=== PATIENT | female | born 1990 ===

== ENCOUNTER 2021-06-23 14:35 | Outpatient (CLI) | payer OTHER | END 2021-06-23 17:30 | disposition home or self-care (01) | LOC: PRENATAL 14:35 | PROVIDERS: ATTEND Obstetrics & Gynecology Maternal & Fetal Medicine | DX: O26.849 Uterine size-date discrepancy, unspecified trimester (principal); O30.90 Multiple gestation, unspecified, unspecified trimester; Z3A.11 11 weeks gestation of pregnancy ==

== ENCOUNTER 2021-08-24 12:29 | Outpatient (CLI) | payer OTHER | END 2021-08-24 14:00 | disposition home or self-care (01) | LOC: PRENATAL 12:29 | PROVIDERS: ATTEND Obstetrics & Gynecology Maternal & Fetal Medicine | DX: O35.0XX0 Maternal care for (suspected) central nervous system malformation in fetus, not applicable or unspecified (principal); O30.90 Multiple gestation, unspecified, unspecified trimester; O26.879 Cervical shortening, unspecified trimester; Z3A.20 20 weeks gestation of pregnancy ==

== ENCOUNTER 2021-10-05 09:17 | Outpatient (CLI) | payer OTHER | END 2021-10-05 10:40 | disposition home or self-care (01) | LOC: PRENATAL 09:17 | PROVIDERS: ATTEND Obstetrics & Gynecology Maternal & Fetal Medicine | DX: O26.849 Uterine size-date discrepancy, unspecified trimester (principal); O30.90 Multiple gestation, unspecified, unspecified trimester; O26.879 Cervical shortening, unspecified trimester; Z3A.26 26 weeks gestation of pregnancy ==

== ENCOUNTER 2021-11-02 11:27 | Outpatient (CLI) | payer OTHER | END 2021-11-02 14:15 | disposition home or self-care (01) | LOC: PRENATAL 11:27 | PROVIDERS: ATTEND Obstetrics & Gynecology Maternal & Fetal Medicine | DX: O26.849 Uterine size-date discrepancy, unspecified trimester (principal); O30.90 Multiple gestation, unspecified, unspecified trimester; O35.0XX0 Maternal care for (suspected) central nervous system malformation in fetus, not applicable or unspecified; Z3A.30 30 weeks gestation of pregnancy ==